=== PATIENT | female | born 1960 | race Caucasian/White ===

== ENCOUNTER 2025-02-07 11:56 | Inpatient (IN) | payer MEDICARE ==
[2025-02-07] MEDS ORDERED: Acetaminophen 325 MG Tab PO PRN (12:45)
[2025-02-07] MEDS ORDERED: Sennosides/Docusate Sodium 50-8.6 MG Tab PO PRN (12:45)
[2025-02-07] MEDS ORDERED: Magnesium Hydroxide 400 MG/5 ML Susp 30 ML Cup PO PRN (12:45)
[2025-02-07] MEDS: Sodium Chloride 0.9% 1,000 ML IV ONE (13:45)
[2025-02-07] MEDS: Potassium Chloride 20 MEQ Tab.ER PO ONE (13:55)
[2025-02-07] MEDS: Doxycycline 100 MG in Sodium Chloride 0.9% 100 ML IV SCH (14:45)
[2025-02-07] MEDS: Sodium Chloride 0.9% 1,000 ML IV SCH (14:45)
[2025-02-07] MEDS ORDERED: Loperamide 2 MG Cap PO PRN (17:31)
[2025-02-07] MEDS: traMADol 50 MG Tab PO PRN (20:05)
[2025-02-07] MEDS: Lactobacillus Rhamnosus GG (Probiotic) Cap PO SCH (20:05)
[2025-02-07] MEDS: atorvaSTATin 10 MG Tab PO SCH (20:08)
[2025-02-07] MEDS: Ondansetron 4 MG/2 ML SDV IV PRN (20:15)
[2025-02-07] MEDS: hydrOXYzine HCl 25 MG Tab PO PRN (22:01)
[2025-02-08 05:56] LABS: HEMATOCRIT 31.9 % (34.3-46.0); HEMOGLOBIN 11.1 g/dL (11.2-15.5); MEAN CORPUSCULAR HEMOGLOBIN 32.4 pg (31.6-35.5); MEAN CORPUSCULAR HGB CONC 34.8 g/dL (31.6-35.5); RED BLOOD CELL COUNT 3.43 M/uL (3.77-5.24); WHITE BLOOD CELL COUNT,WBC 1.7 K/uL (3.2-11.0)
[2025-02-08 06:18] LABS: A/G RATIO 0.7 (1.2-2.2); ALANINE AMINOTRANSFERASE,ALT 45 U/L (12-78); ALBUMIN 2.1 g/dL (3.4-5.0); ALKALINE PHOSPHATASE 75 U/L (46-116); ASPARTATE AMNIOTRANSFERASE,AST 72 U/L (15-37); BILIRUBIN TOTAL 0.7 mg/dL (0.2-1.0); BLOOD UREA NITROGEN,BUN 55 mg/dL (7-18); C-REACTIVE PROTEIN 17.34 mg/dL (<0.50); CALCIUM 7.4 mg/dL (8.5-10.1); CARBON DIOXIDE,CO2 20 mmol/L (21-32); CHLORIDE,CL 103 mmol/L (100-108); EST CRCL DRUG DOSING (CG) 10.08 mL/min; ESTIMATED GFR 11 mL/min (>60); GLUCOSE RANDOM 80 mg/dL (74-106); POTASSIUM,K 4.4 mmol/L (3.6-5.2); SODIUM,NA 135 mmol/L (140-148)
[2025-02-08 06:25] LABS: ANION GAP 16.4 mmol/L (5.0-14.0); CREATININE 4.2 mg/dL (0.6-1.0)
[2025-02-08 06:42] LABS: PLATELET COUNT,PLT 20 K/uL (130-375)
[2025-02-08 06:45] LABS: BAND ABSOLUTE MAN 0.07 K/uL; BAND PERCENT MAN 4 % (5-11); LYMPHOCYTES ABSOLUTE MAN 0.53 K/uL (0.8-3.3); LYMPHOCYTES PERCENT MAN 31 % (24-44); MONOCYTES ABSOLUTE MAN 0.07 K/uL (0.20-0.90); MONOCYTES PERCENT MAN 4 % (2-6); NEUTROPHILS ABSOLUTE MAN 1.04 K/uL (1.0-7.6); SEG NEUTROPHILS PERCENT MAN 61 % (36-66)
[2025-02-08] MEDS: Sertraline 25 MG Tab PO SCH (08:06)
[2025-02-09 05:50] LABS: HEMATOCRIT 31.6 % (34.3-46.0); HEMOGLOBIN 10.8 g/dL (11.2-15.5); MEAN CORPUSCULAR HGB CONC 34.2 g/dL (31.6-35.5); MEAN CORPUSCULAR VOLUME 93.8 fL (81.4-99.0); RED BLOOD CELL COUNT 3.37 M/uL (3.77-5.24); WHITE BLOOD CELL COUNT,WBC 2.7 K/uL (3.2-11.0)
[2025-02-09 06:09] LABS: ANION GAP 18.5 mmol/L (5.0-14.0); C-REACTIVE PROTEIN 8.8 mg/dL (<0.50); CALCIUM 7.5 mg/dL (8.5-10.1); EST CRCL DRUG DOSING (CG) 7.17 mL/min; POTASSIUM,K 4.5 mmol/L (3.6-5.2)
[2025-02-09 06:10] LABS: CREATININE 5.9 mg/dL (0.6-1.0)
[2025-02-09] MEDS: Sodium Chloride 0.9% 500 ML IV ONE (07:15)
[2025-02-09] MEDS: Ondansetron 4 MG Tab.DIS PO PRN (07:17)
[2025-02-09] MEDS ORDERED: Lactated Ringers 500 ML IV SCH (16:15)
[2025-02-09 16:23] LABS: CALCIUM 7.6 mg/dL (8.5-10.1); EST CRCL DRUG DOSING (CG) 6.72 mL/min; PHOSPHORUS 4.8 mg/dL (2.5-4.9)
[2025-02-09 16:29] LABS: CREATININE 6.3 mg/dL (0.6-1.0)
[2025-02-09] MEDS ORDERED: Lactated Ringers 1,000 ML IV SCH (16:45)
[2025-02-09] MEDS: Lactated Ringers 1,000 ML IV SCH (17:06)
[2025-02-09] MEDS: Sodium Bicarbonate 650 MG Tab PO SCH (17:06)
[2025-02-09 17:38] LABS: APPEARANCE,URINE SLIGHTLY CLOUDY (CLEAR); BILIRUBIN,URINE NEGATIVE (NEGATIVE); COLOR,URINE YELLOW (YELLOW); GLUCOSE,URINE NEGATIVE (NEGATIVE); KETONES,URINE TRACE mg/dL (NEGATIVE); LEUKOCYTE ESTERASE,URINE TRACE (NEGATIVE); NITRITE,URINE NEGATIVE (NEGATIVE); OCCULT BLOOD,URINE TRACE-INTACT (NEGATIVE); PROTEIN,URINE >=300 mg/dL (NEGATIVE); UROBILINOGEN,URINE 0.2 EU/dL (0.2-1.0)
[2025-02-09 17:47] LABS: BACTERIA,URINE FEW; EPITHELIAL CELLS,URINE FEW; MUCUS,URINE RARE
[2025-02-09 17:48] LABS: AMORPHOUS SEDIMENT,URINE FEW
[2025-02-09 17:59] LABS: BASE EXCESS VENOUS -13.7 mm/L; BICARBONATE,VENOUS 12.7 mmol/L; METHEMOGLOBIN 0.9 %; O2 SATURATION VENOUS 64.2; OXYHEMOGLOBIN 62.3 %; PCO2 VENOUS 32.4 mm/Hg; PH,VENOUS 7.218 (7.350-7.450); PO2 VENOUS 36.2 mm/Hg
[2025-02-09] MEDS: Sodium Bicarbonate 150 MEQ in Dextrose 5% in Water 1,000 ML IV ONE (18:34)
== END 2025-02-09 19:00 | DRG 683 ==
LOC: JP.MS 11:56
PROVIDERS: ADMIT Internal Medicine; ATTEND Hospitalist
DX: N17.9 Acute kidney failure, unspecified (principal); A77.49 Other ehrlichiosis; L40.50 Arthropathic psoriasis, unspecified; Z79.899 Other long term (current) drug therapy
CPT/HCPCS: 36415; 80048; 80053; 81001; 82040; 82550; 82803; 84100; 85025; 85027; 86140; 93005; A9270-GY; J2405; J3490; J7030; J7040; J7070; J7120; Q0162